=== PATIENT | male | born 1990 | race Caucasian/White ===

== ENCOUNTER 2022-03-16 11:36 | Emergency (ER) | payer OTHER, SELFPAY ==
[2022-03-16 11:38] VITALS: BP 145/88; PULSE 50; RESP 14; TEMP 36.6; O2SAT 99; BMI 22.9
--- NOTE | 2022-03-16 12:01 | EKG12_ITS ---
Test Reason : FATIGUE/CONFUSION Blood Pressure : / mmHG Vent. Rate : 049 BPM Atrial Rate : 049 BPM P-R Int : 128 ms QRS Dur : 108 ms QT Int : 442 ms P-R-T Axes : 040 010 049 degrees QTc Int : 399 ms Sinus bradycardia Incomplete right bundle branch block Borderline ECG Confirmed by DOUG OLSEN, CHINMAY ([id number]), make up editor EDER ORTIZ ([id number]) on 03/18/2022 11:15:41 AM Referred By: Confirmed By:CHINMAY CAMACHO MD
--- NOTE | 2022-03-16 12:01 | CT_ITS ---
HISTORY: altered mental status. TECHNIQUE: Multiple axial images were obtained of the head without intravenous contrast. A radiation dose optimization technique was used for this scan. 235 images. COMPARISON: None. FINDINGS: BRAIN PARENCHYMA: No significant attenuation abnormality. No acute intra-axial hemorrhage. CSF SPACES: Cerebral ventricles, cortical sulci, and other extra-axial CSF spaces within normal limits in size for age. No midline shift or other significant mass effect. No acute extra-axial hemorrhage. OTHER: Intact calvarium. Mild fluid and mucosal thickening in the sphenoid sinus, right maxillary sinus, and ethmoid air cells. Unremarkable orbits. CT/Brain/Head without Contrast IMPRESSION: No acute intracranial process identified. Mild paranasal sinus inflammatory disease. Electronically Signed: Leann Escoto MD at 13:18 EST ,
--- NOTE | 2022-03-16 12:03 | EX.ED.DYSGE1 ---
HPI History of Present Illness Chief Complaint: Fatigue Informant: patient and spouse/S.O. Onset/Context/Timing Onset: Month(s) (6) Context: Gradual Onset Timing: Continuous Quality: fatigued Location: all over Current Severity: Severe Maximum Severity: Severe Worsened by: nothing Relieved by: nothing Associated Symptoms Associated Symptoms: diarrhea Narrative Narrative: Patient has had 6 months of watery diarrhea, fatigue, loss of appetite, chills without definite fevers, myalgias, and weight loss. Symptoms have been worse in the past month, and then the last several days he has had significant decrease in his urine output, states she brought him today after finding out that the last time he urinated was a couple days ago. When he does urinate, they state that it has been foamy. No hematuria. Did see PCP once in this period of time and had some testing but no definitive answers for any of this. This morning he has some swelling beneath his eyes but nowhere else. Today he has been disoriented and answering I do not know to most of the questions from his as he does to me. He has had some nausea on occasion, and some lightheadedness with near syncope when at work according to the . Prior to this, he just takes Prozac for depression. [facility] Medical History (Updated 03/16/22 @ 14:[address] Edmundo Dailey MD) Depression Allergy/AdvReac Type Severity Reaction Status Date / Time acetaminophen [From Percocet] Allergy Hives Verified 03/16/22 11:37 oxycodone [From Percocet] Allergy Hives Verified 03/16/22 11:37 Social History Smoking Status: Current every day smoker tobacco type: cigarettes ROS ROS ED Constitutional Constitutional ED: Reports chills, lethargy, malaise and weakness; Denies fever(s) Eyes Eyes: Denies change in vision or diplopia ENT ENT ED: Denies rhinorrhea or sore throat Cardiovascular Cardiovascular: Reports lightheadedness; Denies chest pain or palpitations Respiratory/Chest Respiratory/Chest: Denies cough or dyspnea Gastrointestinal Gastrointestinal: Reports diarrhea and nausea; Denies abdominal pain, hematochezia, melena or vomiting Genitourinary Genitourinary ED: Reports as per HPI, decreased urination and drinking/eating less; Denies dysuria or hematuria Musculoskeletal Musculoskeletal: Reports myalgias; Denies back pain or neck pain Integumentary Denies abscess or rash Neurologic Neurologic: Reports confusion; Denies headache(s), paresthesias or weakness Psychiatric Psychiatric: Denies anxiety or suicidal thoughts EXAM Physical Exam Const Vital Signs: 03/16/22 11:38 03/16/22 11:39 Temperature 98 F Temperature Source Temporal Pulse Rate 50 L Respiratory Rate 14 Respiratory Effort Normal Non-Labored Respiratory Pattern Normal Blood Pressure 145/88 H Blood Pressure Mean 107 Pulse Ox 99 Oxygen Delivery Method Room Air Positive well nourished and well developed Constitutional Narrative: Appears malaised, follows commands, somewhat confused answering I do not know to most questions General Appearance ED: well developed and NAD HEENT Reports moist mucous membranes HEENT Narrative: Mild swelling beneath both eyes but no ptosis or significant eyelid swelling normocephalic and atraumatic Eyes PERRL and EOMs intact bilaterally General Eye ED: Negative for scleral icterus Neck full ROM and supple Resp normal respiratory effort and clear to auscultation bilaterally Cardio regular rate, regular rhythm and no murmurs Rate: bradycardia GI non-tender and non-distended Auscultation: normoactive bowel sounds Palpation: soft Back/Spine no CVA tenderness General Back: other FROM Extremity normal to inspection General Extremety ED: Negative for edema, pulses abnormal or tenderness General Extremity: Negative for edema or pulses abnormal Neuro CN's II-XII intact bilaterally and no sensory deficits noted Sensorium / Orientation: awake, alert and orientation impaired Motor Exam: strength 5/5 throughout Skin no rashes or lesions noted and no wounds MDM MDM MDM Narrative Medical decision making narrative: Basic labs including kidney function and urinalysis are all normal on this patient. His CBC is normal. There is no left shift to suggest some type of acute bacterial infection. He does not have any abdominal pain, abdominal tenderness, nor abdominal palpable mass in this thin patient with a BMI of 23 to suggest an indication for an emergent CT scanning, however I did perform a CT of his head due to him being somewhat altered although his neurologic exam is otherwise nonfocal and normal. Those images appear unremarkable, and radiologist was in agreement. My interpretation of the CT agrees with that of the radiologist. He is borderline bradycardic, but his EKG shows that it is very normal-appearing sinus rhythm. His urinalysis shows a specific gravity is 1.015. That in conjunction with his normal BUN/creatinine are not tests compatible with someone who has not urinated in 3 days. My suspicion is that he indeed has been urinating and either forgot or was confused about it. COVID and influenza tests are negative. I also sent a Monospot which is negative. However if he has had symptoms for months it is possible that this was mono and he is still fatigued and symptomatic from it, this negative test only rules out the acute phase when IgM is produced. He is a little disoriented, however he is not grossly confused to where he is putting himself in danger. Given all of these normal tests and contacts, I added on alcohol and a drug screen in order to rule out toxins; in addition to these being negative, his anion gap is within normal limits and his bicarb is normal. This patient agrees that he is having brain fog symptoms. He has never had COVID that he knows of. I wonder if he has long COVID. There is no test to rule that in or out at this time. I discussed at length with him and his significant other. It would explain a lot of his symptoms not necessarily the chronic diarrhea. He is following up for a colonoscopy to continue evaluating for that, which I would not cancel the asked me if he should. Lab Data Attestation: I reviewed the patient's lab results. Labs: Laboratory Results - last 24 hr 03/16/22 03/16/22 03/16/22 12:25 12:25 12:25 WBC 4.7 RBC 5.10 Hgb 15.7 Hct 46.5 MCV 91.2 MCH 30.8 MCHC 33.8 RDW Std Deviation 41.9 RDW Coeff of Tiomthy 12.7 Plt Count 216 MPV 9.7 Immature Gran % (Auto) 0.400 Neut % (Auto) 58.3 Lymph % (Auto) 26.9 Rowan % (Auto) 7.7 Eos % (Auto) 5.8 H Baso % (Auto) 0.9 Absolute Neuts (auto) 2.7 Absolute Lymphs (auto) 1.26 Nucleated RBC % 0 Sodium 142 Potassium 4.1 Chloride 105 Carbon Dioxide 29.0 Anion Gap 8 BUN 14 Creatinine 0.98 Estim Creat Clear Calc 108.91 Est GFR (MDRD) Af Amer 115 Est GFR (MDRD) Non-Af 95 BUN/Creatinine Ratio 14.3 Glucose 83 Calcium 9.2 Total Bilirubin 0.50 AST 17 ALT 22 Alkaline Phosphatase 75 Total Protein 7.8 Albumin 4.4 Globulin 3.4 Albumin/Globulin Ratio 1.3 Urine Color Urine Clarity Urine pH Ur Specific Topmost Urine Protein Urine Glucose (UA) Urine Ketones Urine Occult Blood Urine Nitrite Urine Bilirubin Urine Urobilinogen Ur Leukocyte Esterase Urine RBC Urine WBC Ur Squamous Epith Cells Urine Bacteria Urine Mucus Urine Opiates Screen Urine Methadone Screen Ur Barbiturates Screen Ur Phencyclidine Scrn Ur Amphetamines Screen MDMA (Ecstasy) Screen U Benzodiazepines Scrn Urine Cocaine Screen U Cannabinoids Screen Ur Drug Screen Comment Monoscreen Negative 03/16/22 03/16/22 12:25 12:25 WBC RBC Hgb Hct MCV MCH MCHC RDW Std Deviation RDW Coeff of Timothy Plt Count MPV Immature Gran % (Auto) Neut % (Auto) Lymph % (Auto) Rowan % (Auto) Eos % (Auto) Baso % (Auto) Absolute Neuts (auto) Absolute Lymphs (auto) Nucleated RBC % Sodium Potassium Chloride Carbon Dioxide Anion Gap BUN Creatinine Estim Creat Clear Calc Est GFR (MDRD) Af Amer Est GFR (MDRD) Non-Af BUN/Creatinine Ratio Glucose Calcium Total Bilirubin AST ALT Alkaline Phosphatase Total Protein Albumin Globulin Albumin/Globulin Ratio Urine Color Yellow Urine Clarity Clear Urine pH 6.0 Ur Specific Topmost 1.015 Urine Protein 15 H Urine Glucose (UA) Normal Urine Ketones Negative Urine Occult Blood Negative Urine Nitrite Negative Urine Bilirubin Negative Urine Urobilinogen 4 H Ur Leukocyte Esterase Negative Urine RBC 0 SEEN Urine WBC 0 SEEN Ur Squamous Epith Cells 0 SEEN Urine Bacteria 0 SEEN Urine Mucus 0 SEEN Urine Opiates Screen NEGATIVE Urine Methadone Screen NEGATIVE Ur Barbiturates Screen NEGATIVE Ur Phencyclidine Scrn NEGATIVE Ur Amphetamines Screen NEGATIVE MDMA (Ecstasy) Screen NEGATIVE U Benzodiazepines Scrn NEGATIVE Urine Cocaine Screen NEGATIVE U Cannabinoids Screen NEGATIVE Ur Drug Screen Comment Monoscreen Radiography Diagnostic Testing: Clinical Impression(s) from Imaging Studies Brain CT 03/16/22 12:01 IMPRESSION: No acute intracranial process identified. Mild paranasal sinus inflammatory disease. Electronically Signed: Leann Escoto MD at 13:18 EST Reading Location ID and State: [facility] / [place] Tel , Service support , Rhythm Strip Rhythm Strip: Sinus Rhythm Rate: 50 Ectopy: None EKG Initial EKG: Attestation: I personally reviewed and interpreted this EKG as follows: Interpretation: No Acute Injury Pattern and Sinus Bradycardia (otherwise nml EKG) Discharge Plan Triage Chief Complaint: Fatigue ED Provider: Edmundo Dailey Dx/Rx/DC Orders Clinical Impression: Fatigue, Brain fog, Chronic diarrhea Instructions: ED Diarrhea, Unknown Cause, ED Weakness (Uncertain Cause) Primary Care Provider: Kavin Clinton Referrals: Kavin Clinton MD [Primary Care Provider] - (follow up when able) Disposition Disposition: Home, Self Care
--- NOTE | 2022-03-16 12:07 | NURSING ---
NO OLD EKGS
[2022-03-16] MEDS: 0.9% Normal Saline 1,000 ML 1000 ML IV (12:44)
[2022-03-16 12:48] LABS: Bacteria 0 SEEN /hpf (None Seen); Mucous, Urine 0 SEEN /hpf (<or=2+); Red Blood Cells-Urine 0 SEEN /hpf (0-5); Squamous Epithelial Cells - UA 0 SEEN /hpf (0-5); White Blood Cells 0 SEEN /hpf (0-5)
[2022-03-16 12:50] LABS: Absolute Lymphocyte Count 1.26 X10^3/uL (0.83-4.51); Absolute Neutrophil Count 2.7 X10^3/uL (2.0-7.7); Basophil# 0.04 X10^3/uL; Basophil% 0.9 % (0-1); Eosinophil# 0.27 X10^3/uL; Eosinophils% 5.8 % (0-5); Hematocrit 46.5 % (40-54); Hemoglobin 15.7 g/dL (13.0-16.5); Lymphocyte # 1.26 X10^3/ul (0.83-4.51); Lymphocyte % 26.9 % (19-41); Mean Corp Hgb Conc 33.8 g/dL (32-36); Mean Corpuscular Hgb 30.8 pg (27.0-32.0); Mean Corpuscular Volume 91.2 fL (80-94); Mean Platelet Vol. 9.7 fl (6.2-12.0); Monocyte# 0.36 X10^3/uL; Monocyte% 7.7 % (0-10); NRBC Flagged by Analyzer 0 % (0-5); Neutrophil # 2.74 X10^3/uL (2.7-7.7); Neutrophil % 58.3 % (47-70); Platelet Count 216 K/mm3 (150-450); RBC Distribution Width CV 12.7 % (11.6-14.6); RBC Distribution Width SD 41.9 fl (35.1-43.9); White Blood Count 4.7 K/mm3 (4.4-11.0)
[2022-03-16 12:51] LABS: Color, Urine Yellow (Yellow); Glucose, Dipstick Normal (Normal); Ketone-Dipstick Negative (Negative); Leukocyte Esterase-Dipstick Negative /ul (Negative); Nitrite-Dipstick Negative (Negative); Occult Blood-Urine Negative /ul (Negative); Protein-Dipstick 15 mg/dl (Negative); Specific Gravity, Urine 1.015 (1.002-1.030); Urine Bilirubin Dipstick Negative (Negative); Urine Clarity Clear (Clear); Urine Urobilinogen 4 mg/dl (Normal)
[2022-03-16 13:13] LABS: ALB/GLOB Ratio 1.3 RATIO (0.9-2.4); AST(SGOT) 17 U/L (15-37); Alanine Aminotransfer ALT/SGPT 22 U/L (16-61); Albumin, Serum 4.4 g/dL (3.2-5.0); Alkaline Phosphatase 75 U/L (45-117); Anion Gap 8 (5-15); BUN 14 mg/dL (7-18); BUN/Creat Ratio 14.3 RATIO (10-20); Calcium,Total 9.2 mg/dL (8.5-10.1); Chloride 105 mmol/L (98-107); Creatinine, Serum 0.98 mg/dL (0.70-1.30); EST Glomerular Filtration Rate 95 mL/min (>60); Est Glom Filt Rate - Afr Amer 115 mL/min (>60); Estimated Creatinine Clearance 108.91 ml/min; Globulin 3.4 g/dL (2.2-4.2); Glucose 83 mg/dL (74-106); Potassium 4.1 mmol/L (3.5-5.1); Protein, Total 7.8 g/dL (6.4-8.2); Sodium Level 142 mmol/L (136-145)
[2022-03-16 13:30] LABS: Internal QC Validated? YES +Cl - CLEAR BKGD; Monotest Negative (Negative)
[2022-03-16 13:37] VITALS: RESP 18
[2022-03-16 14:00] LABS: Amphetamine Urine VISTA NEGATIVE (<1000 ng/mL); Barbiturate Urine VISTA NEGATIVE (< 200 ng/mL); Benzodiazepine Urine VISTA NEGATIVE (< 200 ng/mL); Cocaine Urine VISTA NEGATIVE (< 300 ng/mL); Ecstacy Urine VISTA NEGATIVE (< 500 ng/mL); Methadone Urine VISTA NEGATIVE (< 300 ng/mL); PCP Urine VISTA NEGATIVE (< 25 ng/mL); THC Urine VISTA NEGATIVE (< 50 ng/mL); Vista UDS pH Range 5
[2022-03-16 14:28] VITALS: RESP 16
[2022-03-16 14:46] LABS: Alcohol, Blood (Medical)-Serum < 3.0 mg/dL
== END 2022-03-16 14:59 | disposition home or self-care (01) ==
PROVIDERS: Emergency Provider Emergency Medicine; PCP Family Medicine; Visit Provider Emergency Medicine
DX: K52.9 Noninfective gastroenteritis and colitis, unspecified (principal); R41.0 Disorientation, unspecified; R00.1 Bradycardia, unspecified; F17.210 Nicotine dependence, cigarettes, uncomplicated; I45.10 Unspecified right bundle-branch block; R53.83 Other fatigue; R53.1 Weakness; R68.83 Chills (without fever); M79.10 Myalgia, unspecified site; R63.4 Abnormal weight loss; R33.9 Retention of urine, unspecified; R11.0 Nausea; R42 Dizziness and giddiness; Z79.899 Other long term (current) drug therapy; R60.9 Edema, unspecified; J34.89 Other specified disorders of nose and nasal sinuses; F32.A Depression, unspecified
CPT/HCPCS: 70450; 80053; 80307; 81001; 82077; 85025; 86308; 87428; 93005; 96360; 96361; 99283; J7030